=== PATIENT | female | born 1965 | race Caucasian/White ===

== ENCOUNTER 2018-05-15 20:40 | Emergency (ER) | payer MEDICAID, OTHER ==
[~2018-05-15] VITALS: Ht 162.6 cm; Wt 65.8 kg
--- NOTE | 2018-05-15 20:45 | NUR ---
PT NELLY FROM HOME FOR BIZARRE BEHAVIOR, PT AAOX1, PT ON MONITOR, VSS, NAD NOTED, PENDING MD LOPEZ
[2018-05-15] MEDS ORDERED: diphenhydrAMINE HCL 50 MG/ML VIAL ONE (20:47)
[2018-05-15] MEDS ORDERED: HALOPERIDOL LACTATE INJ 5 MG/ML VIAL ONE ×2 (20:48→22:00)
[2018-05-15] MEDS ORDERED: LORAZEPAM INJ 2 MG/ML VIAL ONE ×2 (20:49→22:02)
[2018-05-15] MEDS ORDERED: LORAZEPAM INJ 2 MG/ML VIAL IM ONE ×2 (21:00→22:00)
[2018-05-15] MEDS ORDERED: diphenhydrAMINE HCL 50 MG/ML VIAL IM ONE (21:00)
[2018-05-15] MEDS ORDERED: HALOPERIDOL LACTATE INJ 5 MG/ML VIAL IM ONE ×2 (21:00→22:00)
[2018-05-15 21:06] LABS: BASOPHILS # (AUTO) 0.1 /CMM (0.0-0.2); BASOPHILS % (AUTO) 0.5 % (0.0-2.0); HEMATOCRIT 36 % (33-45); LYMPHOCYTES # (AUTO) 3.3 /CMM (0.8-4.8); LYMPHOCYTES % (AUTO) 26.7 % (20.0-44.0); MEAN CORPUSCULAR HGB CONC 33 g/dl (31.0-36.0); MEAN CORPUSCULAR VOLUME 91 fL (82-100); MONOCYTES # (AUTO) 1.1 /CMM (0.1-1.30); MONOCYTES % (AUTO) 8.8 % (2.0-12.0); NEUTROPHILS # (AUTO) 7.7 /CMM (1.8-8.9); PLATELET COUNT (AUTO) 291 /CMM (150-450); RED BLOOD CELL COUNT(AUTO) 3.97 MIL/uL (4.0-5.2); WHITE BLOOD COUNT (AUTO) 12.5 K/uL (4.3-11.0)
[2018-05-15 21:13] LABS: CALCIUM, SERUM 9.5 mg/dL (8.5-10.1); CARBON DIOXIDE 27 mmol/L (21-32); CHLORIDE 104 mmol/L (98-107); CREATININE 0.7 mg/dL (0.6-1.3); GLUCOSE 105 mg/dL (74-106); POTASSIUM 3.5 mmol/L (3.5-5.1); SODIUM SERUM 139 mmol/L (136-145); UREA NITROGEN, BLOOD 27 mg/dL (7-18)
[2018-05-15 21:15] LABS: ALCOHOL, BLOOD < 3 mg/dL (0-0)
--- NOTE | 2018-05-15 22:54 | NUR ---
Patient is resting comfortably in bed with eyes closed. Easily aroused. VSS
--- NOTE | 2018-05-16 02:37 | NUR ---
Patient is resting comfortably in bed with eyes closed. Easily aroused. VSS
--- NOTE | 2018-05-16 03:16 | NUR ---
Patient is resting comfortably in bed with eyes closed. Easily aroused. VSS
--- NOTE | 2018-05-16 05:12 | NUR ---
Patient is resting comfortably in bed with eyes closed. Easily aroused. VSS
--- NOTE | 2018-05-16 06:12 | NUR ---
Patient discharged to home in stable condition. Written and verbal after care instructions given. Patient verbalizes understanding of instruction. Patient is awake and alert to self, day, and place. Patient ambulatory with a steady gait.
[2018-05-16 06:13] VITALS: BP 160/89
== END 2018-05-16 06:14 | disposition home or self-care (01) ==
LOC: ER 20:42
DX: F15.10 Other stimulant abuse, uncomplicated (principal)
CPT/HCPCS: 36415; 80048; 80305; 80307; 84703; 85025; 93005; 96372 ×2; 99284; A4606; J1200; J1630 ×2; J2060 ×2; G0480

== ENCOUNTER 2018-07-03 06:21 | Emergency (ER) | payer OTHER ==
[~2018-07-03] VITALS: Ht 154.9 cm; Wt 65.8 kg
[2018-07-03 06:30] VITALS: BP 125/90
--- NOTE | 2018-07-03 06:30 | NUR ---
PT BIBRA/[employer] FROM ASSISTED S/P WITNESSED TONIC CLONIC SEIZURE LASTING APPROX 30SEC. DENIES HEAD INJURY, SOB, CP, HEADACHE. PER RA, PT REC'D 5MG VERSED IM X1 EN ROUTE. PT AWAKE, VERBALLY INCOMPREHENSIBLE. SKIN INTACT. VITAL STABLE. [employer] AT BEDSIDE. PLACED ON MONITOR, WILL CONTINUE TO MONITOR.
[2018-07-03] MEDS ORDERED: LORAZEPAM INJ 2 MG/ML VIAL ONE (06:38)
[2018-07-03] MEDS ORDERED: LEVETIRACETAM (500MG) 500 MG/5 ML VIAL IV ONE (06:38)
--- NOTE | 2018-07-03 06:50 | NUR ---
IV INITIATED RIGHT AC 20G. LABS DRAWN FROM SITE. CALLED LAB FOR LINE PILOT. IV INTACT AND PATENT, PLACED ON SALINE LOCK.
[2018-07-03] MEDS ORDERED: LORAZEPAM INJ 2 MG/ML VIAL IM ONE (07:00)
[2018-07-03] MEDS ORDERED: LEVETIRACETAM (500MG) 1,000 MG in IV NS 0.9% 100 ML IV ONE (07:00)
--- NOTE | 2018-07-03 07:05 | NUR ---
URINE COLLECTED AND SENT TO LAB
[2018-07-03 07:12] LABS: BASOPHILS # (AUTO) 0.1 /CMM (0.0-0.2); BASOPHILS % (AUTO) 0.6 % (0.0-2.0); HEMATOCRIT 38 % (33-45); HEMOGLOBIN 12.8 g/dL (11.5-14.8); LYMPHOCYTES # (AUTO) 2.1 /CMM (0.8-4.8); LYMPHOCYTES % (AUTO) 18.7 % (20.0-44.0); MEAN CORPUSCULAR HGB CONC 34 g/dl (31.0-36.0); MEAN CORPUSCULAR VOLUME 88 fL (82-100); MONOCYTES # (AUTO) 0.9 /CMM (0.1-1.30); MONOCYTES % (AUTO) 7.8 % (2.0-12.0); NEUTROPHILS # (AUTO) 7.5 /CMM (1.8-8.9); NEUTROPHILS % (AUTO) 67.9 % (43.0-81.0); PLATELET COUNT (AUTO) 232 /CMM (150-450); RED BLOOD CELL COUNT(AUTO) 4.34 MIL/uL (4.0-5.2)
[2018-07-03 07:15] LABS: CALCIUM, SERUM 9.3 mg/dL (8.5-10.1); CARBON DIOXIDE 26 mmol/L (21-32); CHLORIDE 102 mmol/L (98-107); CREATININE 0.9 mg/dL (0.6-1.3); GLUCOSE 112 mg/dL (74-106); POTASSIUM 4.7 mmol/L (3.5-5.1); SODIUM SERUM 139 mmol/L (136-145); UREA NITROGEN, BLOOD 30 mg/dL (7-18)
[2018-07-03 07:18] LABS: VALPROIC ACID 1 ug/mL (50-100)
[2018-07-03 07:21] LABS: ALANINE AMINOTRANSFERASE 24 U/L (12-78); ALBUMIN 4.1 g/dL (3.4-5.0); ALCOHOL, BLOOD < 3 mg/dL (0-0); ALKALINE PHOSPHATASE 144 U/L (46-116); ASPARTATE AMINOTRANSFERASE 23 U/L (15-37); BILIRUBIN,DIRECT 0.1 mg/dL (0.0-0.2); BILIRUBIN,TOTAL 0.3 mg/dL (0.2-1.0); TOTAL PROTEIN, SERUM 7.4 g/dL (6.4-8.2)
--- NOTE | 2018-07-03 07:28 | NUR ---
GAVE REPORT TO ZINA DAMICO FOR SYLVIA
[2018-07-03] MEDS ORDERED: IV NS 0.9% 1,000 ML BAG IV ONE (07:30)
--- NOTE | 2018-07-03 11:11 | NUR ---
Called [facility] boarding house cook for a sitter.
--- NOTE | 2018-07-03 16:45 | NUR ---
CALLED [facility] FOR A BLS TRANSPORT. ETA 1800 MIN TRIP#[id number]
--- NOTE | 2018-07-03 17:55 | NUR ---
REPORT GIVEN MICK AT [facility]. PT LEFT VIA PRIVATE AMBULANCE, PT LEFT IN STABLE CONDITION, LEFT VIA GURNEY WITH PHYSICAL FITNESS TRAINER, ALL PPW GIVEN TO AMBULANCE STAFF.
== END 2018-07-03 18:01 ==
LOC: ER 06:23
DX: F15.10 Other stimulant abuse, uncomplicated (principal); F14.10 Cocaine abuse, uncomplicated; F20.9 Schizophrenia, unspecified
CPT/HCPCS: 36415; 51701; 80048; 80076; 80164; 80305; 80307; 85025; 96365; 96372; 99285; J1953; J2060; J7030 ×3; G0480

== ENCOUNTER 2021-02-07 16:36 | Emergency (ER) | payer OTHER ==
[~2021-02-07] VITALS: Ht 165.1 cm; Wt 72.6 kg
--- NOTE | 2021-02-07 17:05 | NUR ---
ESTUARDO RAKarlos "Homeless [place] agitated/acting bizarre, Uncooperative Gave 5mg Versed IM". The patient is resonsive to tactile stimuli. Respiration regular and unlabored. Attached to the monitor. WArm blankert provided for comfort. Will continue to monitor the patient.
[2021-02-07 18:03] LABS: BASOPHILS % (AUTO) 0.2 % (0.0-2.0); EOSINOPHILS % (AUTO) 4.8 % (0.0-6.0); HEMATOCRIT 43 % (33-45); HEMOGLOBIN 13.9 g/dL (11.5-14.8); LYMPHOCYTES # (AUTO) 0.8 K/uL (0.8-4.8); LYMPHOCYTES % (AUTO) 9.6 % (20.0-44.0); MEAN CORPUSCULAR HGB CONC 33 g/dl (31.0-36.0); MEAN CORPUSCULAR VOLUME 90 fL (82-100); MONOCYTES # (AUTO) 0.5 K/uL (0.1-1.30); MONOCYTES % (AUTO) 5.6 % (2.0-12.0); NEUTROPHILS % (AUTO) 79.8 % (43.0-81.0); PLATELET COUNT (AUTO) 225 K/uL (150-450); RED BLOOD CELL COUNT(AUTO) 4.75 MIL/uL (4.0-5.2); WHITE BLOOD COUNT (AUTO) 8.8 K/uL (4.3-11.0)
[2021-02-07 18:12] LABS: CALCIUM, SERUM 9.7 mg/dL (8.5-10.1); CARBON DIOXIDE 24 mmol/L (21-32); CHLORIDE 104 mmol/L (98-107); CREATININE 1.8 mg/dL (0.6-1.3); GLUCOSE 163 mg/dL (74-106); POTASSIUM 4.2 mmol/L (3.5-5.1); SODIUM SERUM 141 mmol/L (136-145); UREA NITROGEN, BLOOD 45 mg/dL (7-18)
[2021-02-07 18:19] LABS: ACETAMINOPHEN 0 ug/ml (10-30); ALANINE AMINOTRANSFERASE 27 U/L (12-78); ALBUMIN 4.4 g/dL (3.4-5.0); ALCOHOL, BLOOD < 3 mg/dL (0-0); ALKALINE PHOSPHATASE 111 U/L (46-116); ASPARTATE AMINOTRANSFERASE 29 U/L (15-37); BILIRUBIN,DIRECT 0.2 mg/dL (0.0-0.2); BILIRUBIN,TOTAL 0.8 mg/dL (0.2-1.0); TOTAL PROTEIN, SERUM 8.3 g/dL (6.4-8.2)
--- NOTE | 2021-02-07 19:11 | NUR ---
Patient given written and verbal discharge instructions. Patient verbalizes understanding of instructions. Patient is ambulatory with steady gait. Refuses offer of care home placement. Patient given list of available shelters in surrounding area.
[2021-02-07 19:14] VITALS: BP 129/71
== END 2021-02-07 19:15 | disposition home or self-care (01) ==
LOC: ER 17:20
DX: R46.1 Bizarre personal appearance (principal)
CPT/HCPCS: 36415; 80048-TC; 80076-TC; 85025-TC; G0480

== ENCOUNTER 2021-03-09 05:35 | Emergency (ER) | payer OTHER ==
--- NOTE | 2021-03-09 05:45 | NUR ---
WHILE TRYING TO TRIAGE PATIENT, PT STOOD UP, STATED "FUCK THIS, I DO NOT WANT TO BE HERE." PT THEN RAN OUT OF THE ED.
== END 2021-03-09 05:47 | disposition left against medical advice (07) ==
LOC: EDUNIT# 05:35 → ER 05:43
DX: Z53.21 Procedure and treatment not carried out due to patient leaving prior to being seen by health care provider (principal)

== ENCOUNTER 2022-03-20 09:50 | Emergency (ER) | payer OTHER ==
[~2022-03-20] VITALS: Ht 165.1 cm; Wt 54.4 kg
[2022-03-20] MEDS ORDERED: CEPHALEXIN MONOHYDRATE 500 MG CAPSULE PO ONE ×2 (10:53→11:00)
[2022-03-20] MEDS ORDERED: ACETAMINOPHEN ES 500 MG TABLET ONE (10:53)
[2022-03-20] MEDS ORDERED: SULFAMETH/TRIMETH 800/160 MG 1 UDTAB TABLET ONE (10:54)
--- NOTE | 2022-03-20 10:58 | NUR ---
MEDICATED ORDERED. SEE EMAR.
[2022-03-20] MEDS ORDERED: ACETAMINOPHEN ES 500 MG TABLET PO ONE (11:00)
[2022-03-20] MEDS ORDERED: SULFAMETH/TRIMETH 800/160 MG 1 UDTAB TABLET PO ONE (11:00)
--- NOTE | 2022-03-20 12:25 | NUR ---
SS Consult: SS Consult requested for homelessness. The pt. is a 56-year-old female pt. who came to the ED for cellulitis on her lower extremity. Upon SS consult, the pt. is Alert & Oriented x 4 and makes good eye contact. The pt. appears unkempt with depressed mood & affect. Pt.s speech is clear and thought process is WNL. Pt. remained, calm & cooperative throughout interview. Pt. denies SI/HI and states denies hallucinations. SW explored pt.s living situation. Patient states she is currently experiencing homelessness. SW explored pt.s drug & ETOH use. Pt. denies any drug use. Pt. stated he is independent with her ADLs and is able to ambulate. Pt. also has a wheelchair at bedside and pt. stated she uses it to carry her belongings. SW explored pt.s support system. Pt. states she has no support system. Plan: Pt. was agreeable to [facility]cf placement. SW provided pt. with the following homeless, outpatient mental health and drug use resources and pt. accepted them. Pt. stated she will use resources to seek chcf placement. Pt. signed homeless waiver and it was placed in the pt.s chart. SW provided pt. with bus directions to [facility] and bus TAP card. DAYANARA provided the following resources: Year-round shelters: [facility] [address] [place], [place] [id number] ; [facility] [place] [address] [place] [address]; [place] [facility] Upvyzpp[address] [facility]. [facility] [address] Hygiene: [facility] [place] [facility]: [address] ; [place] [facility] [address] [facility] ; [facility] [address] . Food Resources: [place] [facility] at [facility]- [address]. [place]; Meet Each Need with Dignity (MEND) [address] [place]; [facility] [address] [facility] [place]; [facility] [address]. Mental Health resources provided: [facility] [address] [place], [place] [address] ; [facility] [address] [address] [facility] [address], [place] [address] ; [facility] [address] [place], [place] [id number] ; [facility] [address] [place], [place] [address] Healthcare Clinics: [facility] [address] [facility], [address] [place]. [place] ; [facility] [address] [facility] [address] [place] [address]; [facility] [address] [facility] [place] [phone] Counseling--Outpatient [facility] [address] [facility], [place] [address] (Specializes in in-depth psychotherapy for emotional distress: anxiety, depression, interpersonal conflicts, life transitions, childhood abuse) [facility] [address] [place] [address] (Assist with solving problem marital difficulties, separation & divorce, aging parents, & grief, chronic & terminal illness) [facility] [address] [place] [address] (Deal with loss & grief, anxiety, marital difficulties) Homebound/Mental Health Services [address] [facility], [address] [place], [place] [id number] (Provide in-home mental services to people who are incapable of leaving their homes) [facility] [address] [facility] [address] [facility] [address] [facility]. [place], [place] [phone] PSYCHIATRIC OUTPATIENT SERVICES [facility] Partial Hospitalization and Intensive Outpatient Program (Managed Care and [place] Only)[address] [facility] [phone] [facility] Partial Hospitalization and Outpatient [id number] [place], [place] [phone] TYRONE CUEVAS [facility] [id number] [facility]. [address] [place], [place] [phone] [facility] Partial Hospitalization and Outpatient [id number] [facility] Tyrone Cuevas, [phone] Substance Abuse resources provided included: [facility] Substance Abuse Self-Helpline ([facility]) ; [facility] [address] [facility]. [place] [address] ; [facility] [address] [facility] [address] ; [facility] Rehabilitation Program [address] [address] ; [facility] [address] [facility] [address] ; [facility] [address] [facility] [address] ; [facility] [address] [facility] [phone] ; [facility] Substance Abuse Helpline([facility] ; [facility] ; [facility] [place]; [facility] [place]; [facility] Tyrone Cuevas; [facility]; [facility] [place]; [facility] Piter Avila; Alcoholics Anonymous -[facility]; [place] ; Marijuana Anonymous [facility]; Narcotics Anonymous www.na.org;
--- NOTE | 2022-03-20 12:35 | NUR ---
MEDICALLY CLEARED BY DR MEADE. SEEN BY [facility] LASER OPERATOR FOR RESOURCES, HOMELESS WAIVER SIGNED. DISCHARGED HOME IN STABLE CONDITION.
[2022-03-20 12:40] VITALS: BP 132/84
== END 2022-03-20 12:41 | disposition home or self-care (01) ==
LOC: ER 10:10
DX: L03.115 Cellulitis of right lower limb (principal); Z60.2 Problems related to living alone